=== PATIENT | female | born 2000 | race Two or more races ===

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

== ENCOUNTER 2019-05-12 17:38 | Emergency (ER) | payer OTHER ==
[~2019-05-12] VITALS: Ht 149.9 cm; Wt 43.2 kg
[2019-05-12] MEDS ORDERED: XULA1DIS (17:50)
[2019-05-12 20:03] VITALS: BP 133/84
[2019-05-12] MEDS ORDERED: ACETAMINOPHEN TAB 650MG DOSE (2X325MG) PO ONE (20:15)
== END 2019-05-12 20:10 | disposition home or self-care (01) ==
LOC: M ED 17:38
DX: S16.1XXA Strain of muscle, fascia and tendon at neck level, initial encounter (principal); V40.6XXA Car passenger injured in collision with pedestrian or animal in traffic accident, initial encounter; Y92.9 Unspecified place or not applicable; Y93.9 Activity, unspecified; Y99.9 Unspecified external cause status; F17.200 Nicotine dependence, unspecified, uncomplicated; Z79.3 Long term (current) use of hormonal contraceptives; Z79.899 Other long term (current) drug therapy; Z88.6 Allergy status to analgesic agent; Z88.8 Allergy status to other drugs, medicaments and biological substances

== ENCOUNTER 2020-12-25 11:03 | Emergency (ER) | payer OTHER ==
[~2020-12-25] VITALS: Ht 149.9 cm; Wt 46.8 kg
[~2020-12-25 11:03] MED LIST changes: +XULA1DIS
[2020-12-25] MEDS ORDERED: ZOFR4TAB16 PO (12:14)
[2020-12-25] MEDS ORDERED: DULC100C2 PO (12:14)
[2020-12-25] MEDS ORDERED: MULTTAB20 PO (12:14)
[2020-12-25] MEDS ORDERED: MIRA3350 PO (14:16)
[2020-12-25 14:32] VITALS: BP 112/67
== END 2020-12-25 14:36 | disposition home or self-care (01) ==
LOC: M ED 11:03
DX: K59.00 Constipation, unspecified (principal); K58.9 Irritable bowel syndrome, unspecified; H40.9 Unspecified glaucoma; F17.200 Nicotine dependence, unspecified, uncomplicated; Z88.6 Allergy status to analgesic agent; Z88.8 Allergy status to other drugs, medicaments and biological substances

== ENCOUNTER 2021-05-19 15:13 | Outpatient (CLI) | payer OTHER ==
[~2021-05-19] VITALS: Ht 149.9 cm; Wt 53.6 kg
[~2021-05-19 15:13] MED LIST changes: +DULC100C2 PO; +MIRA3350 PO; +MULTTAB20 PO; +ZOFR4TAB16 PO
[2021-05-19 15:30] VITALS: BP 134/73
[2021-05-19] MEDS ORDERED: HOME MED LIST COMPLETE! XX SCH (15:35)
--- NOTE | 2021-05-19 18:20 | IPNPDOC ---
Text Note Date of Service The patient was seen on 05/19/21. NOTE Subjective: Jennyfer is a 20-year-old female who is a at 33.6 weeks gestation with an ROSARIO of 07/01/21 based off of a first trimester ultrasound. She initiated care in [place] with [facility]. Her has essentially been uncomplicated. There have been signs on ultrasound of a club foot. She declined going to [facility] for follow-up. She presents to labor and delivery with complaints of "leaking discharge one time." Reports this occurred only one time but soaked her underwear and hasn't happened since. Denies vaginal odor or vaginal itching. Reports occasional contractions and active movement. Denies vaginal bleeding. OB Hx: Medical Hx: no current medical issues Surgical hx: Lasik eye surgery Social Hx: single, smoker, denies alcohol or drug use, history of chlamydia Family Hx: paternal grandmother with fibromyalgia, diabetes and glaucoma; Maternal grandmother with diabetes Objective: VS: see below FHR: 130, moderate variability, positive accelerations, no decelerations. Contractions: uterine irritability with some irregular contractions that decreased with fluid intake General: Awake and alert. Does not appear to be in any distress. Respiratory: regular rate without use of accessory muscles Abdomen: gravid, soft and not tender with palpation. SSE: cervix appears closed. White, thin discharged noted. No pooling noted. Nitrazine negative and fern negative. Wet prep negative. SCE: posterior, closed, moderate consistency, no show Bedside ultrasound done showing posterior placenta, cephalic presentation, with LYUDMILA of 18.02 cm. Assessment: IUP at 33.6 weeks, not in labor and not ruptured Plan: Reviewed findings with patient. She has an appointment next week for routine OB care. Reviewed access to care, kick count, labor signs and danger signs to report. Discharged to home with precautions. VS,Fishbone, I+O VS, Fishbone, I+O Vital Signs Date Time Temp Pulse Resp B/P (MAP) Pulse Ox O2 Delivery O2 Flow Rate FiO2 05/19/21 15:30 97.9 116 18 134/73 (93) STEPHANIE LOPEZ CNM May 19, 2021 18:20
== END 2021-05-19 17:50 | disposition home or self-care (01) ==
LOC: M LDO 15:13
PROVIDERS: ATTEND Advanced Practice Midwife
DX: O60.03 Preterm labor without delivery, third trimester (principal); O26.893 Other specified pregnancy related conditions, third trimester; O99.333 Smoking (tobacco) complicating pregnancy, third trimester; N89.8 Other specified noninflammatory disorders of vagina; F17.210 Nicotine dependence, cigarettes, uncomplicated; Z3A.33 33 weeks gestation of pregnancy

== ENCOUNTER 2024-06-16 19:50 | Emergency (ER) | payer OTHER ==
[~2024-06-16] VITALS: Ht 149.9 cm; Wt 52.3 kg
[2024-06-16] MEDS ORDERED: FAMO1TAB11 (20:04)
[2024-06-16 20:10] VITALS: BP 162/95; TEMP 99.7; O2SAT 97
[2024-06-16 21:57] LABS: BASO % 0.4 % (0.0-1.0); EOS # 0.1 10^3/uL (0.0-0.5); EOS % 0.8 % (0.0-3.0); HEMATOCRIT 41.5 % (36.0-47.0); HEMOGLOBIN 13.7 g/dl (12.0-15.5); LYMPH # 1.6 10^3/uL (1.5-5.0); LYMPH % 15.1 % (24.0-44.0); MEAN CORPUSCULAR HEMOGLOBIN 28.6 pg (27.0-33.0); MEAN CORPUSCULAR VOLUME 86.6 fl (80.0-96.0); MONO # 0.3 10^3/uL (0.0-0.8); MONO % 3.1 % (2.0-8.0); NEUTROPHILS # 8.3 10^3/uL (1.5-8.5); NEUTROPHILS % 80.4 % (36.0-66.0); PLATELET COUNT, AUTOMATED 382 10^3/uL (150-450); RED BLOOD COUNT 4.79 10^6/uL (4.00-5.40); WHITE BLOOD COUNT 10.3 10^3/uL (4.0-10.0)
[2024-06-16 22:26] LABS: LIPASE 34 U/L (12-53)
[2024-06-16 22:27] LABS: CK-MB VALUE MASS < 1.0 NG/ML (<3.6); CPK CREATINE PHOSPHOKINASE 89 U/L (34-145); MB/CK RELATIVE INDEX 1.12 (< OR =4)
[2024-06-16 22:28] LABS: ALKALINE PHOSPHATASE 58 U/L (35-104); ALT/SGPT 22 U/L (7.0-40); AST/SGOT 17 U/L (<34); BILIRUBIN,DIRECT < 0.1 MG/DL (<0.4); BILIRUBIN,TOTAL 0.3 MG/DL (0.3-1.2); BLOOD UREA NITROGEN 9 MG/DL (9-23); CALCIUM LEVEL 9.7 MG/DL (8.5-10.1); CARBON DIOXIDE LEVEL 26 MMOL/L (20-31); CHLORIDE LEVEL 108 MMOL/L (98-107); CREATININE FOR GFR 0.66 MG/DL (0.55-1.30); GLOMERULAR FILTRATION RATE > 60.0 (>60); GLUCOSE, FASTING 99 MG/DL (60-100); HCG, SERUM QUALITATIVE NEGATIVE (NEGATIVE); POTASSIUM SERUM 4.3 MMOL/L (3.5-5.1); SODIUM LEVEL 143 MMOL/L (136-145); TOTAL PROTEIN 7.3 G/DL (5.7-8.2)
[2024-06-17] MEDS: SUCRALFATE SUSP 1GM/10ML UD PO ONE (02:23)
[2024-06-17] MEDS ORDERED: CARA1TAB6 PO (02:47)
== END 2024-06-17 03:00 | disposition home or self-care (01) ==
LOC: M ED 19:50
DX: K21.9 Gastro-esophageal reflux disease without esophagitis (principal); Z88.6 Allergy status to analgesic agent; Z88.8 Allergy status to other drugs, medicaments and biological substances; Z79.899 Other long term (current) drug therapy